=== PATIENT | male | born 1965 | race Caucasian/White ===

== ENCOUNTER 2017-06-04 15:09 | Emergency (ER) | payer BC ==
[2017-06-04] MEDS ORDERED: Sodium Chloride 0.9% 10 ML Syringe FLUSH PRN (15:19)
[2017-06-04] MEDS ORDERED: Acetaminophen 325 MG Tab PO ONE (15:31)
[2017-06-04] MEDS ORDERED: Aspirin 81 MG Tab.Chew PO ONE (15:32)
--- NOTE | 2017-06-04 15:42 | EDM.PDOC ---
ED HPI GENERAL MEDICAL PROBLEM - General Chief Complaint: Chest Pain Stated Complaint: CHEST PAIN Time Seen by Provider: 06/04/17 15:19 Source of Information: Reports: Patient, RN Notes Reviewed - History of Present Illness INITIAL COMMENTS - FREE TEXT/NARRATIVE: 51-year-old male has not felt well for about the past week or so. This started with cough, sore throat and some nasal and sinus congestion. He began to feel more achy about 3 days ago. He was seen at [facility] 2 days ago, UA was checked with some voiding dysuria that he had and he was diagnosed with UTI. He has been on antibiotics 2 days for that. this past morning about 14 hours ago he started having some moderate anterior chest discomfort. This has continued intermittently throughout the remainder of today. He began having more severe anterior chest tightness with radiation to his right arm about 2 hours ago. At that time he decided he needed to come here to the ED. On arrival to the ED the discomfort now is better, mild at time of my initial evaluation. He also does have history of hypertension, type 2 diabetes and family history for heart disease, (father). The pain was more severe at home, right anterior chest, still present but very mild at the present time. That did initially go into the right arm but no radiation of discomfort at this time. No abdominal pain nausea or vomiting. Treatments HAND PATTERN MARKER: Reports: Other (see below) Other Treatments HAND PATTERN MARKER: on anitbiotic Chest Pain Score (Numeric/FACES): 7 - Related Data Allergies Allergy/AdvReac Type Severity Reaction Status Date / Time z-pac Allergy Diarrhea Uncoded 06/04/17 15:31 Home Meds: Home Meds Aspirin [Halfprin] 81 mg PO DAILY 06/04/17 [History] Ciprofloxacin HCl [Cipro] 500 mg PO BID 06/04/17 [History] Fish Oil/[place]-3 Fatty Acids [Fish Oil 1,000 MG] 1 cap PO BID 06/04/17 [History] Losartan/Hydrochlorothiazide [Losartan-HCTZ 50-12.5 MG] 1 tab PO DAILY 06/04/17 [History] Magnesium 0 mg PO DAILY 06/04/17 [History] Multivitamins [Tab-A-Danielle] 1 tab PO DAILY 06/04/17 [History] Potassium Gluconate [Potassium] 99 mg PO DAILY 06/04/17 [History] atorvaSTATin [Lipitor] 10 mg PO DAILY 06/04/17 [History] metFORMIN [Glucophage] 1,000 mg PO BID 06/04/17 [History] ED ROS GENERAL - Review of Systems Review Of Systems: See Below Constitutional: Reports: Fever (Low-grade, intermittently for the last few days) , Chills HEENT: Reports: Sinus Problem (Mild congestion), Throat Pain (Mild) Respiratory: Reports: Cough (Somewhat frequent), Sputum (Scant). Denies: Shortness of Breath, Wheezing, Pleuritic Chest Pain Cardiovascular: Reports: Chest Pain (Right Anterior achiness and tightness off and on for about 14 hours, now better) GI/Abdominal: Denies: Abdominal Pain, Nausea, Vomiting : Reports: Dysuria Musculoskeletal: Reports: Other (Generalized myalgias the last few days) Skin: Reports: No Symptoms Neurological: Reports: Dizziness, Headache (Off and on for about the past week) ED EXAM, GENERAL - Physical Exam Exam: See Below General Appearance: Alert, Anxious (Mild), Mild Distress Eye Exam: Bilateral Eye: PERRL Throat/Mouth: Normal Inspection Head: Atraumatic. No: Facial Swelling Neck: Supple, Full Range of Motion Respiratory/Chest: No Respiratory Distress, Lungs Clear, Normal Breath Sounds, Chest Non-Tender Cardiovascular: Regular Rate, Rhythm GI/Abdominal: Soft, Non-Tender. No: Guarding Back Exam: No: CVA Tenderness (L), CVA Tenderness (R) Extremities: Normal Inspection, Normal Range of Motion. No: Pedal Edema, Leg Pain Neurological: Alert, Oriented, No Motor/Sensory Deficits Skin Exam: Warm, Dry, Normal Color EKG INTERPRETATION EKG Date: 06/04/17 Rhythm: NSR [place]: Normal P-Wave: Present QRS: Normal ST-T: Normal Course - Vital Signs Last Recorded V/S: Last Vital Signs Temp 98.4 F 06/04/17 15:56 Pulse 86 06/04/17 17:13 Resp 19 06/04/17 15:18 BP 133/64 06/04/17 17:13 Pulse Ox 97 06/04/17 15:18 - Orders/Labs/Meds Orders: Active Orders 24 hr Category Date Time Status EKG 12 Lead [EKG Documentation Completion] [RC] STAT Care 06/04/17 15:19 Active Peripheral IV Care [RC] . DIRECTED Care 06/04/17 15:19 Active CBC W/O DIFF,HEMOGRAM [HEME] MOTH@0700 Lab 06/25/17 07:00 Ordered CBC W/O DIFF,HEMOGRAM [HEME] MOTH@0700 Lab 06/07/17 07:00 Ordered CBC W/O DIFF,HEMOGRAM [HEME] MOTH@0700 Lab 06/11/17 07:00 Ordered CBC W/O DIFF,HEMOGRAM [HEME] MOTH@0700 Lab 06/14/17 07:00 Ordered CBC W/O DIFF,HEMOGRAM [HEME] MOTH@0700 Lab 06/18/17 07:00 Ordered CBC W/O DIFF,HEMOGRAM [HEME] MOTH@0700 Lab 06/21/17 07:00 Ordered Heparin Sodium/D5W [Heparin 25,000 Units in D5W 500 ML] Med 06/04/17 16:30 Active 25,000 units in 500 ml IV TITRATE Nitroglycerin/D5W [Nitroglycerin 25 MG/D5W 250 ML] Med 06/04/17 16:45 Active 25 mg in 250 ml IV TITRATE Sodium Chloride 0.9% [Normal Saline] 1,000 ml Med 06/04/17 15:45 Active IV ASDIRECTED Sodium Chloride 0.9% [Saline Flush] Med 06/04/17 15:19 Active 10 ml FLUSH ASDIRECTED PRN Peripheral IV Insertion Adult [OM.PC] Stat Oth 06/04/17 15:19 Ordered Medication Orders Sodium Chloride (Normal Saline) 1,000 mls @ 150 mls/hr IV ASDIRECTED SHANIA Last Admin: 06/04/17 15:55 Dose: 150 mls/hr Heparin Sodium/Dextrose (Heparin 25,000 Units In D5w 500 Ml) 25,000 units in 500 mls @ 0 mls/hr IV TITRATE SHANIA; 13 UNITS/KG/HR PRN Reason: Protocol Last Admin: 06/04/17 16:45 Dose: 20 mls/hr Nitroglycerin/Dextrose (Nitroglycerin 25 Mg/D5w 250 Ml) 25 mg in 250 mls @ 3 mls/hr IV TITRATE SHANIA; 5 MCG/MIN PRN Reason: Protocol Last Admin: 06/04/17 16:53 Dose: 5 mcg/min, 3 mls/hr Sodium Chloride (Saline Flush) 10 ml FLUSH ASDIRECTED PRN PRN Reason: Keep Vein Open Last Admin: 06/04/17 15:57 Dose: 10 ml Labs: Laboratory Tests 06/04/17 06/04/17 Range/Units 15:30 15:30 WBC 13.62 H (4.23-9.07) K/mm3 RBC 4.54 L (4.63-6.08) M/mm3 Hgb 13.3 L (13.7-17.5) gm/L Hct 39.7 L (40.1-51.0) % MCV 87.4 (79.0-92.2) fl MCH 29.3 (25.7-32.2) pg MCHC 33.5 (32.2-35.5) g/dl RDW Std Deviation 42.9 (35.1-43.9) fL Plt Count 176 (163-337) K/mm3 MPV 10.0 (9.4-12.3) fl Neut % (Auto) 76.8 H (34.0-67.9) % Lymph % (Auto) 7.0 L (21.8-53.1) % Mckenzie % (Auto) 13.2 H (5.3-12.2) % Eos % (Auto) 2.5 (0.8-7.0) Baso % (Auto) 0.3 (0.1-1.2) % Neut # (Auto) 10.46 H (1.78-5.38) K/mm3 Lymph # (Auto) 0.95 L (1.32-3.57) K/mm3 [place]enzie # (Auto) 1.80 H (0.30-0.82) K/mm3 Eos # (Auto) 0.34 (0.04-0.54) K/mm3 Baso # (Auto) 0.04 (0.01-0.08) K/mm3 Manual Slide Review Normal smear Sodium 135 L (136-145) mEq/L Potassium 3.9 (3.5-5.1) mEq/L Chloride 104 (98-107) mEq/L Carbon Dioxide 24 (21-32) mEq/L Anion Gap 10.9 (5-15) BUN 14 (7-18) mg/dL Creatinine 1.0 (0.7-1.3) mg/dL Est Cr Clr Drug Dosing 100.98 mL/min Estimated GFR (MDRD) > 60 (>60) mL/min BUN/Creatinine Ratio 14.0 (14-18) Glucose 220 H (74-106) mg/dL Calcium 9.1 (8.5-10.1) mg/dL Total Bilirubin 0.5 (0.2-1.0) mg/dL AST 30 (15-37) U/L ALT 23 (16-63) U/L Alkaline Phosphatase 81 (46-116) U/L Troponin I 6.259 H* (0.00-0.056) ng/mL Total Protein 6.9 (6.4-8.2) g/dl Albumin 3.1 L (3.4-5.0) g/dl Globulin 3.8 gm/dL Albumin/Globulin Ratio 0.8 L (1-2) Meds: Medications Generic Name Dose Route Start Last Admin Trade Name Freq PRN Reason Stop Dose Admin Sodium Chloride 1,000 mls @ 150 mls/hr 06/04/17 15:45 06/04/17 15:55 Normal Saline IV 150 mls/hr ASDIRECTED SHANIA Administration Heparin Sodium/Dextrose 25,000 units in 500 mls @ 0 mls/hr 06/04/17 16:30 05/11 16:45 Heparin 25,000 Units In D5w 500 Ml IV 20 mls/hr TITRATE SHANIA Administration Protocol 13 UNITS/KG/HR Nitroglycerin/Dextrose 25 mg in 250 mls @ 3 mls/hr 06/04/17 16:45 06/04/17 16 :53 Nitroglycerin 25 Mg/D5w 250 Ml IV 5 mcg/min TITRATE SHANIA 3 mls/hr Protocol Administration 5 MCG/MIN Sodium Chloride 10 ml 06/04/17 15:19 06/04/17 15:57 Saline Flush FLUSH 10 ml ASDIRECTED PRN Administration Keep Vein Open Discontinued Medications Generic Name Dose Route Start Last Admin Trade Name Freq PRN Reason Stop Dose Admin Acetaminophen 975 mg 06/04/17 15:31 06/04/17 15:56 Tylenol PO 06/04/17 15:32 975 mg NOW ONE Administration Aspirin 324 mg 06/04/17 15:32 06/04/17 15:56 Aspirin PO 06/04/17 15:33 324 mg ONETIME ONE Administration Heparin Sodium (Porcine) 8,000 units 06/04/17 16:25 06/04/17 16:34 Heparin Sodium IVPUSH 06/04/17 16:26 8,000 units ONETIME ONE Administration Lorazepam 0.5 mg 06/04/17 16:24 06/04/17 16:43 Ativan IVPUSH 06/04/17 16:25 0.5 mg ONETIME ONE Administration Metoprolol Tartrate Confirm 06/04/17 16:35 06/04/17 16:57 Lopressor Administered 06/04/17 16:36 Not Given Dose 5 mg .ROUTE .STK-MED ONE Metoprolol Tartrate 5 mg 06/04/17 16:55 06/04/17 16:56 Lopressor IVPUSH 06/04/17 16:56 5 mg ONETIME ONE Administration Metoprolol Tartrate 5 mg 06/04/17 17:09 06/04/17 17:13 Lopressor IVPUSH 06/04/17 17:10 5 mg ONETIME ONE Administration Nitroglycerin 1 gm 06/04/17 16:24 06/04/17 16:33 Nitro-Bid 2% TOP 06/04/17 16:25 1 gm ONETIME ONE Administration Simvastatin 40 mg 06/04/17 17:09 06/04/17 17:17 Zocor PO 06/04/17 17:10 40 mg ONETIME ONE Administration - Re-Assessments/Exams Free Text/Narrative Re-Assessment/Exam: 06/04/17 16:35. Troponin came back quite elevated at 6.25. When I went back to discuss symptoms with patient he stated he was pain-free but did become diaphoretic as I visited with him about the likelihood of him having a heart attack today. We had given aspirin 324 mg by mouth. We have further given Lopressor 5 mg IV, did give IV heparin bolus of 8000 units and have also started heparin drip 1000 units per hour. Nitro drip has been ordered. 06/04/17 17:11 have ordered Zocor 40 mg by mouth. He continues pain-free at this time. Have discussed with admission coordinator [facility], and Dr. Guzmán Cardiology interventionalist aviation metalsmith. He will be routed to [facility] ED, [place]. [facility] just left on a transfer very short time ago. They will not have a rig available for transfer for up to 3 hours. [facility] helicopter does not have clearance to fly due to weather. Therefore we will send him [facility] fixed wing which is in route from [place] at this time. Second Lopressor dose has been given. Blood pressure down into the 130s. Heart rate down to around 80. Departure - Departure Time of Disposition: 16:45 Disposition: DC/Tfer to [facility] Reason for Transfer *Q: Other Clinical Impression: Acute coronary syndrome Referrals: Jonathan Caldwell MD [Primary Care Provider] - Forms: ED Department Discharge - My Orders Last 24 Hours: My Active Orders 06/25/17 07:00 CBC W/O DIFF,HEMOGRAM [HEME] MOTH@0700 06/04/17 15:19 EKG 12 Lead [EKG Documentation Completion] [RC] STAT Peripheral IV Care [RC] . DIRECTED Sodium Chloride 0.9% [Saline Flush] 10 ml FLUSH ASDIRECTED PRN Peripheral IV Insertion Adult [OM.PC] Stat 06/04/17 15:45 Sodium Chloride 0.9% [Normal Saline] 1,000 ml IV ASDIRECTED 06/04/17 16:30 Heparin Sodium/D5W [Heparin 25,000 Units in D5W 500 ML] 25,000 units in 500 ml IV TITRATE 06/04/17 16:45 Nitroglycerin/D5W [Nitroglycerin 25 MG/D5W 250 ML] 25 mg in 250 ml IV TITRATE 06/07/17 07:00 CBC W/O DIFF,HEMOGRAM [HEME] MOTH@0700 06/11/17 07:00 CBC W/O DIFF,HEMOGRAM [HEME] MOTH@00 06/14/17 07:00 CBC W/O DIFF,HEMOGRAM [HEME] MOTH@00 06/18/17 07:00 CBC W/O DIFF,HEMOGRAM [HEME] MOTH@00 06/21/17 07:00 CBC W/O DIFF,HEMOGRAM [HEME] MOTH@0700 - Assessment/Plan Last 24 Hours: My Active Orders 06/25/17 07:00 CBC W/O DIFF,HEMOGRAM [HEME] MOTH@0700 06/04/17 15:19 EKG 12 Lead [EKG Documentation Completion] [RC] STAT Peripheral IV Care [RC] . DIRECTED Sodium Chloride 0.9% [Saline Flush] 10 ml FLUSH ASDIRECTED PRN Peripheral IV Insertion Adult [OM.PC] Stat 06/04/17 15:45 Sodium Chloride 0.9% [Normal Saline] 1,000 ml IV ASDIRECTED 06/04/17 16:30 Heparin Sodium/D5W [Heparin 25,000 Units in D5W 500 ML] 25,000 units in 500 ml IV TITRATE 06/04/17 16:45 Nitroglycerin/D5W [Nitroglycerin 25 MG/D5W 250 ML] 25 mg in 250 ml IV TITRATE 06/07/17 07:00 CBC W/O DIFF,HEMOGRAM [HEME] MOTH@00 06/11/17 07:00 CBC W/O DIFF,HEMOGRAM [HEME] MOTH@00 06/14/17 07:00 CBC W/O DIFF,HEMOGRAM [HEME] MOTH@00 06/18/17 07:00 CBC W/O DIFF,HEMOGRAM [HEME] MOTH@0700 06/21/17 07:00 CBC W/O DIFF,HEMOGRAM [HEME] MOTH@07
[2017-06-04] MEDS ORDERED: Sodium Chloride 0.9% 1,000 ML IV SCH (15:45)
[2017-06-04] MEDS ORDERED: Nitroglycerin 2% Oint 1 GM UD Packet TOP ONE (16:24)
[2017-06-04] MEDS ORDERED: LORazepam 2 MG/ML MDV IVPUSH ONE (16:24)
[2017-06-04] MEDS ORDERED: Metoprolol Tartrate 5 MG in Sodium Chloride 0.9% 50 ML IV ONE (16:24)
[2017-06-04] MEDS ORDERED: Heparin Sodium 5,000 Units/ML Vial IVPUSH ONE (16:25)
[2017-06-04] MEDS ORDERED: Heparin Sodium/D5W 25,000 UNITS/500 ML BAG IV SCH (16:30)
--- NOTE | 2017-06-04 16:30 | CR ---
Chest: Portable view of the chest was obtained. Comparison: No previous study. Heart size and mediastinum are normal. Lungs are clear. Bony structures are grossly intact. Impression: 1. Nothing acute is identified on portable chest x-ray. Diagnostic code #1
[2017-06-04] MEDS ORDERED: Metoprolol Tartrate 5 MG/5 ML SDV ONE (16:35)
[2017-06-04] MEDS ORDERED: Nitroglycerin/D5W 25 MG/250 ML BOTTLE IV SCH (16:45)
[2017-06-04] MEDS ORDERED: Metoprolol Tartrate 5 MG/5 ML SDV IVPUSH ONE ×2 (16:55→17:09)
[2017-06-04] MEDS ORDERED: Simvastatin 20 MG Tab PO ONE (17:09)
== END 2017-06-04 17:30 ==
LOC: SUPCPDRO 15:09 → JD.ED 15:09
DX: I24.9 Acute ischemic heart disease, unspecified (principal); I10 Essential (primary) hypertension; E11.9 Type 2 diabetes mellitus without complications; Z79.899 Other long term (current) drug therapy; Z79.84 Long term (current) use of oral hypoglycemic drugs; Z79.82 Long term (current) use of aspirin; Z88.1 Allergy status to other antibiotic agents
CPT/HCPCS: 36415; 71010; 80053; 84484; 85025; 87804; 93005; 96361; 96365; 96368; 96375; 96376; 99285; A9270; J1644; J2060; J7040; J7050; 93010; J3490